=== PATIENT | male | born 1985 | race Two or more races ===

== ENCOUNTER 2017-11-02 20:09 | Emergency (ER) | payer SELFPAY ==
[~2017-11-02] VITALS: Ht 177.8 cm; Wt 70.3 kg
[2017-11-02 20:29] VITALS: BP 106/85
== END 2017-11-03 04:21 | disposition left against medical advice (07) ==
LOC: ER 20:15
DX: T14.8XXA Other injury of unspecified body region, initial encounter (principal); Z53.21 Procedure and treatment not carried out due to patient leaving prior to being seen by health care provider; X58.XXXA Exposure to other specified factors, initial encounter; Y93.89 Activity, other specified; Y92.89 Other specified places as the place of occurrence of the external cause; Y99.8 Other external cause status